=== PATIENT | female | born 1950 | race Caucasian/White ===

== ENCOUNTER 2024-04-30 08:39 | Emergency (ER) | payer MEDICARE, OTHER, SELFPAY ==
[2024-04-30 08:42] VITALS: BP 172/103
--- NOTE | 2024-04-30 09:00 | ED.GENMED ---
History of Present Illness
General
Chief Complaint: Flank Pain
Time Seen by Provider: 04/30/24 08:49
History of Present Illness
History of Present Illness:
74-year-old female presents to the emergency department for evaluation of acute onset of left flank pain beginning upon awakening this morning. She notes she had similar pain 2 weeks ago and was evaluated at [facility], details of
this visit are vague and she has no records for me to review at this time but she states she was told she had a kidney stone, was admitted overnight and then promptly discharged the next day and told a kidney stone was not causing her pain. She has
felt well for the past several weeks but the pain recurred again this morning. No fevers or chills. No hematuria.
Review of Systems
Review of Systems
Allergies reviewed?: Yes
All Other Systems: ROS reviewed and negative except as documented in HPI and ROS
Phy Exam
Physical Exam
Physical Exam:
GEN: Well appearing, NAD, WDWN
HEENT: Oral mucosa moist, no scleral icterus
Cardiac: Regular rate
Lung: No respiratory distress, no tachypnea
MSK: No gross deformity or injuries
Skin: Good color, no pallor or jaundice, no rashes
Neuro: AO x3, moves all extremities freely
Psych: Calm, cooperative
Course
Orders/Labs/Results
Orders:
Orders
04/30/24 09:00
CT Abd/pel Without Iv Or Oral Urgent
Comment:
Reason For Exam: L flank pain
04/30/24 09:06
Complete Blood Count/With Diff Urgent
Comprehensive Metabolic Panel Urgent
Urinalysis Reflex To Culture Urgent
Date Specimen was Collected: 04/30/24
Time Specimen was Collected: 09:03
Urine Microscopic Reflex Cult Urgent
Urine Culture Urgent
YESSENIA Source: U
Specimen Description:
Date Specimen was Collected: 04/30/24
Time Specimen was Collected: 09:03
Abnormal Lab Results
04/30/24
09:06
RBC 4.11 L 10^6/uL
(4.20-5.40)
Hgb 9.7 L g/dL
(12.0-16.0)
Hct 30.4 L %
(37.0-47.0)
MCV 74.0 L fL
(81.0-99.0)
MCH 23.6 L pg
(27.0-31.0)
MCHC 31.9 L g/dL
(33.0-37.0)
RDW 16.9 H %
(11.5-14.5)
MPV 10.9 H fL
(7.4-10.4)
Absolute Neuts (auto) 7.0 H 10^3/uL
(1.4-6.5)
Absolute Monos (auto) 0.7 H 10^3/uL
(0.1-0.6)
Creatinine 0.5 L mg/dL
(0.6-1.0)
Glucose 112 H mg/dl
(70-99)
Ur Occult Blood Reflex Trace A
(Negative)
Leukocyte Esterase Rfl 2+ A
(Negative)
Urine WBC (Reflex) 40-50 A /HPF
(0-5)
04/30/24 09:06
04/30/24 09:06
Vital Signs
Initial and Last Documented VS:
Initial Vital Signs
Temp Pulse Resp BP Pulse Ox
97.7 F 79 16 172/103 99
04/30/24 08:42 04/30/24 08:42 04/30/24 08:42 04/30/24 08:42 04/30/24 08:42
Last Documented Vital Signs
Temp Pulse Resp BP Pulse Ox
97.7 F 69 13 123/73 87
04/30/24 08:42 04/30/24 10:45 04/30/24 10:45 04/30/24 10:00 04/30/24 10:15
MDM/Problems Addressed
MDM/Problems Addressed:
CT reveals no obstructing ureterolithiasis. The urinalysis is suggestive of UTI with pyuria thus we will treat this as a mild pyelonephritis with a course of antibiotics.
*Critical Care Note
Total Time (30-74mins, 75-104mins- exclusive of procedures): Not Applicable
ED Attending Note
-
Portions of this chart may have been created with voice recognition software.� Occasional wrong word or��sound alike� substitutions may have occurred due to the inherent limitations of voice recognition software.
Discharge Plan
Departure
Patient Disposition: Home (Routine Discharge)
Date of Disposition: 04/30/24
Time of Disposition: 10:33
Patient with high blood pressure during this ER visit?: No
Discharge Problem:
Acute pyelonephritis
Instructions: Urinary Tract Infection, Adult ED
Prescriptions:
New
cefdinir 300 mg capsule
300 mg PO BID 7 Days Qty: 14 0RF
Referrals:
Gayla Roberts, DO [Family Provider] -
Interventions
Interventions:
*Risk Screen - Suicide Last Done: 04/30/24 08:44
*General Assessment Last Done: 04/30/24 09:04
*Neglect/Abuse Screening Last Done: 04/30/24 08:44
ED- Fall Risk Assessment Last Done: 04/30/24 09:10
*ED COVID-19 Vaccine History Last Done: 04/30/24 08:43
*Nursing Disposition Last Done: 04/30/24 10:55
NW-Wpjsgl-Wnbyxynipz Assessment Last Done: 04/30/24 09:10
ED-Female Genitourinary Assessment Last Done: 04/30/24 09:10
Discharge Date and Time
Discharge Date/Time: 04/30/24 10:56
Print Language: FINNISH
[2024-04-30 09:04] VITALS: BP 147/63; BMI 30.7
[2024-04-30 09:16] LABS: % Basophils 0.5 % (0-2); % Eosinophils 1.7 % (0-6); % Immature Granulocytes 0.4 % (0-0.5); % Lymphocytes 22.7 % (20.5-51.1); % Monocytes 6.9 % (1.7-9.3); % Neutrophils 67.8 % (42.2-75.2); Absolute Basophils 0.1 10^3/uL (0-0.2); Absolute Eosinophils 0.2 10^3/uL (0-0.7); Absolute Lymphocytes 2.4 10^3/uL (1.2-3.4); Absolute Monocytes 0.7 10^3/uL (0.1-0.6); Hematocrit 30.4 % (37.0-47.0); Hemoglobin 9.7 g/dL (12.0-16.0); Mean Corp Hgb Conc. 31.9 g/dL (33.0-37.0); Mean Corpuscular Hgb 23.6 pg (27.0-31.0); Mean Platelet Volume 10.9 fL (7.4-10.4); Nucleated Red Blood Cells % 0 %; Platelet Count 259 10^3/uL (130-400); Red Blood Cell Count 4.11 10^6/uL (4.20-5.40); Red Cell Dist. Width 16.9 % (11.5-14.5); White Blood Cell Count 10.3 10^3/uL (4.8-10.8)
[2024-04-30 09:31] LABS: ALT (SGPT) 17 U/L (0-35); AST (SGOT) 25 U/L (14-36); Albumin 4.5 g/dl (3.5-5.0); Alkaline Phosphatase 59 U/L (38-126); Blood Urea Nitrogen 12 mg/dl (7-17); Calcium 9.4 mg/dl (8.4-10.2); Carbon Dioxide 24 mmol/L (22-30); Chloride 105 mmol/L (98-107); Estimated Creatinine Clearance 88 ml/min; Glucose 112 mg/dl (70-99); Potassium 3.8 mmol/L (3.5-5.1); Sodium 143 mmol/L (135-145); Total Bilirubin 0.2 mg/dl (0.2-1.3); eGFR > 60.00
[2024-04-30 09:47] LABS: Urine Albumin Negative (Neg - Trace); Urine Bilirubin Negative (Negative); Urine Character Clear (Clear); Urine Color Yellow; Urine Glucose Negative (Negative); Urine Ketone Negative (Negative); Urine Leukocyte 2+ (Negative); Urine Nitrite Negative (Negative); Urine Occult Blood Trace (Negative); Urine Specific Gravity 1.005 (<1.030); Urine Urobilinogen Negative (Neg - 1+)
[2024-04-30 10:00] VITALS: BP 123/73
[2024-04-30 10:28] LABS: Urine Squamous Cell 21-25 /LPF (Few)
[2024-04-30 10:29] LABS: Urine Urothelial Cell 0-2 /LPF (FEW)
[2024-04-30 10:30] LABS: Urine Amorphous Seen; Urine Red Blood Cell 0-2 /HPF (0-2); Urine White Cell 40-50 /HPF (0-5)
== END 2024-04-30 10:56 | disposition home or self-care (01) ==
LOC: EMR 08:39
PROVIDERS: Physician Assistant; EMERGENCY PHYSICIAN Emergency Medicine; FAMILY PHYSICIAN Family Medicine
DX: N10 Acute pyelonephritis (principal)
CPT/HCPCS: 99284; 74176; 80053; 81003; 81015; 85025; 87086

== ENCOUNTER → 2024-08-28 13:40 | Outpatient (REF) | payer MEDICARE, SELFPAY | LOC: RAD 13:40 | PROVIDERS: ATTENDING PHYSICIAN Nurse Practitioner; FAMILY PHYSICIAN Family Medicine | DX: N13.30 Unspecified hydronephrosis (principal) | CPT/HCPCS: 74178; Q9967 ==

== ENCOUNTER 2025-01-17 13:12 | Emergency (ER) | payer SELFPAY ==
[2025-01-17] VITALS (7 sets, daily range): BP systolic 140–189; BP diastolic 58–92; BMI 31.7
--- NOTE | 2025-01-17 15:45 | ED.GENMED ---
History of Present Illness
General
Chief Complaint: Chest Pain
Time Seen by Provider: 01/17/25 14:11
History of Present Illness
History of Present Illness:
74-year-old female with history of diabetes presenting to the emergency department for right-sided mid axillary rib pain. Patient reports 2 weeks ago she slipped on water and fell with an outstretched right hand onto her right ribs. She has since
been having pain in that area, however 2 days ago started to have pain that radiated to her chest. She also notes pain with deep inspiration, causing shortness of breath. Does note history of blood clots in the past, however provoked by knee
surgery. She is not on any anticoagulation. She denies any history of cardiac disease. Pain is worse with any type of movement. Denies cough or fever or additional acute medical complaints
Phy Exam
Physical Exam
Physical Exam:
General: Well-appearing, no clinical signs of dehydration, nontoxic and in no acute distress
HEENT: protecting airway
Neck: appears supple
CV: Normal heart rate, regular rhythm
Resp: No accessory muscle use, no increased work of breathing, lungs clear to auscultation bilaterally. Reproducible tenderness to the right mid axillary rib angles without crepitus or ecchymosis
Abd: No distention
Extremities: No deformities, symmetric swelling bilaterally to lower extremities
Neuro: alert, no focal neurologic deficit
: deferred
Rectal: deferred
Psych: Normal affect
Skin: Intact
Scores
Heart Score for Chest Pain Patients
STEMI patient?: No
History: Slightly or Non-Suspicious
ECG: Normal
Age: >/= 65 years
Risk Factors: 1 or 2 Risk Factors
Troponin: </= Normal Limit
Heart Score for Chest Pain Patients: 3
Heart Score Risk: 2.5% MACE over next 6 weeks
Course
Orders/Labs/Results
Orders:
Orders
01/17/25 13:13
ECG [Electrocardiogram (*1)] Urgent
Reason for Study: Chest Pain
EKG- Treatment ONCE
01/17/25 13:27
Ribs, Right 3 View W/PA Chest [CR Ribs-right 3 Vw W/pa Chest*] Urgent
Comment:
Reason For Exam: pain
01/17/25 15:37
Complete Blood Count/With Diff Urgent
Comprehensive Metabolic Panel Urgent
D-Dimer Urgent
Troponin I Urgent
01/17/25 16:10
CT Chest PE Study Urgent
Comment:
Reason For Exam: right rib pain, sob
01/17/25 19:30
Ketorolac [Toradol] 15 mg IV NOW STA
Abnormal Lab Results
01/17/25
15:37
RBC 3.83 L 10^6/uL
(4.20-5.40)
Hgb 8.9 L g/dL
(12.0-16.0)
Hct 28.9 L %
(37.0-47.0)
MCV 75.5 L fL
(81.0-99.0)
MCH 23.2 L pg
(27.0-31.0)
MCHC 30.8 L g/dL
(33.0-37.0)
RDW 18.2 H %
(11.5-14.5)
MPV 10.5 H fL
(7.4-10.4)
Absolute Monos (auto) 0.8 H 10^3/uL
(0.1-0.6)
D-Dimer 1.73 H ug/mlFEU
(0.00-0.50)
Potassium 3.3 L mmol/L
(3.5-5.1)
Creatinine 0.4 L mg/dL
(0.6-1.0)
Glucose 144 H mg/dl
(70-99)
01/17/25 15:37
01/17/25 15:37
Vital Signs
Initial and Last Documented VS:
Initial Vital Signs
Temp Pulse Resp BP Pulse Ox
98.7 F 78 16 150/72 99
01/17/25 13:24 01/17/25 13:24 01/17/25 13:24 01/17/25 13:24 01/17/25 13:24
Last Documented Vital Signs
Temp Pulse Resp BP Pulse Ox
98.7 F 81 16 149/79 99
01/17/25 13:24 01/17/25 19:30 01/17/25 19:30 01/17/25 19:07 01/17/25 19:30
MDM/Problems Addressed
MDM/Problems Addressed:
74-year-old female with history of diabetes presenting for right rib pain after fall 2 weeks ago. Vital signs on arrival are normal.
On exam, patient resting comfortably, no acute discomfort. Patient had x-ray imaging of the ribs prior to my assessment, no acute fracture, no pneumothorax. Patient is generally tender to the mid axillary region with suspicion for rib contusion
versus possible small rib fracture that was not seen on x-ray. Patient notes that the pain is now in her chest. EKG obtained, nonischemic with lower suspicion for ACS. Suspected to be referred pain. Patient however notes some Hartness of breath,
history of DVT. For this reason we will screen with D-dimer. Will also obtain troponin and continue to closely monitor
16:10-patient's D-dimer is elevated. For this reason we will proceed with CT chest
19:30 -CT of the chest without significant acute pathology. At this time continue to suspect rib contusion and musculoskeletal strain as etiology of pain. Patient administered Toradol for pain. Remains hemodynamically stable. Ultimately feel
stable for discharge with continued outpatient supportive therapy. Return precautions discussed and patient verbalized understanding
*Pulse Oximetry
SaO2: 99
Oxygen Mode of Delivery: Room air
Patient hypoxic: no
*EKG
Interpreted by ED Provider?: Yes
EKG Intrepretation Date: 01/17/25
EKG Intrepretation Time: 15:49
Interpretation: normal
Heart Rate: 77
Rate: normal
Rhythm: sinus
Hopkins: normal axis
Interval: normal interval
QRS Pattern: normal QRS
Ischemia: no ischemia
*Critical Care Note
Total Time (30-74mins, 75-104mins- exclusive of procedures): Not Applicable
ED Attending Note
-
Portions of this chart may have been created with voice recognition software.� Occasional wrong word or��sound alike� substitutions may have occurred due to the inherent limitations of voice recognition software.
Discharge Plan
Departure
Patient Disposition: Home (Routine Discharge)
Date of Disposition: 01/17/25
Time of Disposition: 19:33
Patient with high blood pressure during this ER visit?: No
Condition: Good
Discharge Problem:
Contusion of rib on right side
Instructions: Rib injury in adults
Prescriptions:
New
ibuprofen 600 mg tablet
600 mg PO Q8H PRN (Reason: Pain) Qty: 20 0RF
No Action
cefdinir 300 mg capsule
300 mg PO BID 7 Days Qty: 14 0RF
Referrals:
Gayla Roberts DO [Family Provider, Family Practice]
Stand Alone Forms: Return to Work
Activity Restrictions/Additional Instructions:
You were seen in the emergency department for right-sided rib pain
You were found to have reassuring x-ray imaging and CT imaging of your chest. We recommend that you take ibuprofen and Tylenol as needed for pain.
Please follow-up closely with your primary care physician.
Return to the emergency department for any worsening of your symptoms, or any development of chest pain, difficulty breathing, abdominal pain with persistent vomiting and inability to tolerate food or liquid by mouth (concern for dehydration),
weakness, headache or confusion, fever greater than 100.4, or any additional symptoms that are concerning to you.
Thank you for choosing [facility].
Interventions
Interventions:
*Risk Screen - Suicide Last Done: 01/17/25 13:24
*General Assessment Last Done: 01/17/25 15:43
*Neglect/Abuse Screening Last Done: 01/17/25 13:24
*ED- Fall Risk Assessment Last Done: 01/17/25 13:24
*ED COVID-19 Vaccine History Last Done: 01/17/25 19:46
*Nursing Disposition Last Done: 01/17/25 19:46
ED- Cardiac Assessment Last Done: 01/17/25 15:42
Discharge Date and Time
Print Language: KOREAN
[2025-01-17 15:46] LABS: Hematocrit 28.9 % (37.0-47.0); Hemoglobin 8.9 g/dL (12.0-16.0); Mean Corp Hgb Conc. 30.8 g/dL (33.0-37.0); Mean Corpuscular Volume 75.5 fL (81.0-99.0); Nucleated Red Blood Cells % 0 %; Platelet Count 180 10^3/uL (130-400); Red Cell Dist. Width 18.2 % (11.5-14.5)
[2025-01-17 15:58] LABS: D-Dimer 1.73 ug/mlFEU (0.00-0.50)
[2025-01-17 16:05] LABS: ALT (SGPT) 17 U/L (0-35); AST (SGOT) 23 U/L (14-36); Albumin 4.2 g/dl (3.5-5.0); Alkaline Phosphatase 81 U/L (38-126); Blood Urea Nitrogen 11 mg/dl (7-17); Calcium 9.0 mg/dl (8.4-10.2); Carbon Dioxide 26 mmol/L (22-30); Chloride 107 mmol/L (98-107); Estimated Creatinine Clearance 89 ml/min; Glucose 144 mg/dl (70-99); Potassium 3.3 mmol/L (3.5-5.1); Sodium 141 mmol/L (135-145); Total Protein 6.8 g/dl (6.3-8.2); eGFR > 60.00
[2025-01-17 16:11] LABS: Troponin I < 0.012 ng/ml
[2025-01-17] MEDS: TORADOL 15 MG IV (19:40)
== END 2025-01-17 20:03 | disposition home or self-care (01) ==
LOC: EMR 13:12
PROVIDERS: EMERGENCY PHYSICIAN Student in an Organized Health Care Education/Training Program; FAMILY PHYSICIAN Family Medicine
DX: S20.211A Contusion of right front wall of thorax, initial encounter (principal); W01.0XXA Fall on same level from slipping, tripping and stumbling without subsequent striking against object, initial encounter; E11.9 Type 2 diabetes mellitus without complications; Z86.718 Personal history of other venous thrombosis and embolism
CPT/HCPCS: 96374; 99285; 71101; 71275; 80053; 84484; 85025; 85379; 93005; Q9967